=== PATIENT | male | born 1980 | race African-American/Black ===

== ENCOUNTER 2017-01-09 09:16 | Emergency (ER) | payer BC ==
[2017-01-09] MEDS ORDERED: Ketorolac 60 MG/2 ML SDV IM ONE (09:40)
--- NOTE | 2017-01-09 09:45 | EDM.PDOC ---
ED HPI GENERAL MEDICAL PROBLEM - General Chief Complaint: Back Pain or Injury Stated Complaint: BACK PAIN Time Seen by Provider: 01/09/17 09:34 - History of Present Illness INITIAL COMMENTS - FREE TEXT/NARRATIVE: HISTORY AND PHYSICAL: History of present illness: The patient is a 36-year-old male who presents with complaints of pain to his right posterior neck/upper back area that has been ongoing on-and-off episodically since 2012. Patient states he had an injury back then and since then he'll have episodic pain and he has seen the chiropractor for this and uses Naprosyn. 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 He is right -hand dominant. The pain does not radiate to his arm and there is no numbness tingling or neurovascular changes in his extremity. He says that the pain he is experiencing today is typical to his prior episodes but he says that normally the Naprosyn will make it go away and this time it only reduce the pain but did not alleviate the pain. The patient denies any anterior chest pain shortness of breath fever chills abdominal complaints or midline back pain. The patient also mentions a small fatty cystlike area on his soft tissue right forearm he wanted me to take a look at but he is not complaining of pain in that region. Review of systems: As per history of present illness and below otherwise all systems reviewed and negative. Past medical history: As per history of present illness and as reviewed below otherwise noncontributory. Surgical history: As per history of present illness and as reviewed below otherwise noncontributory. Social history: No reported history of drug or alcohol abuse. Family history: As per history of present illness and as reviewed below otherwise noncontributory. Physical exam: Gen.: Well-developed well-nourished man who moves easily in the ED and vital signs have been reviewed by me. HEENT: Atraumatic, normocephalic, negative for conjunctival pallor or scleral icterus, mucous membranes moist, throat clear, neck supple, nontender, trachea midline. There are no midline step-offs tenderness or defects of the cervical spine but there is reproducible tenderness at the trapezius and right paraspinal musculature on the right. Lungs: Clear to auscultation, breath sounds equal bilaterally, chest nontender. Heart: S1S2, regular rate and rhythm no overt murmurs Abdomen: Soft, nondistended, nontender. NABS. Negative for costovertebral tenderness. Pelvis: Stable nontender. Genitourinary: Deferred. Rectal: Deferred. Extremities: Atraumatic, full range of motion without any defects or deficits. The legs are negative for cords or calf pain. Neurovascular unremarkable. At his right forearm proximally on the dorsal aspect there is a walnut size soft tissue fatty like area which is mobile nontender and nonfluctuant and not erythematous. Neuro: Awake, alert, oriented. Cranial nerves II through XII unremarkable. Cerebellum unremarkable. Motor and sensory unremarkable throughout. Exam nonfocal. Back: There are no midline step-offs in his defects of the thoracic or lumbar spine and there is no posterior rib tenderness or scapular tenderness. There is paraspinal cervical musculature spasm and tenderness as described above Diagnostics: X-ray of cervical spine and chest x-ray Therapeutics: Toradol Testing results were discussed with the patient as well as his blood pressure. He says he feels very nervous being here but I told him that he needs to follow- up in the clinic both for his blood pressure as well as today's complaints. I will also give him information for Dr. Christie if he would like that cystlike area on his arm removed. Impression: Right neck/upper back pain acute on chronic Definitive disposition and diagnosis as appropriate pending reevaluation and review of above. right upper back Pain Score (Numeric/FACES): 3 - Related Data Allergies Allergy/AdvReac Type Severity Reaction Status Date / Time No Known Allergies Allergy Verified 01/09/17 09:29 Home Meds: Home Meds . [No Known Home Meds] 01/09/17 [History] Past Medical History - Past Health History Medical/Surgical History: Denies Medical/Surgical History Musculoskeletal History: Reports: Back Pain, Chronic Social & Family History - Family History Family Medical History: Noncontributory - Tobacco Use Smoking Status *Q: Never Smoker - Recreational Drug Use Recreational Drug Use: No ED ROS GENERAL - Review of Systems Review Of Systems: ROS reveals no pertinent complaints other than HPI. ED EXAM, GENERAL - Physical Exam Exam: See Below (See dictation) Course - Vital Signs Last Recorded V/S: Last Vital Signs Temp 36.3 C 10/05/17 09:16 Pulse 82 01/09/17 09:16 Resp 18 01/09/17 09:16 BP 154/106 H 01/09/17 09:16 Pulse Ox 97 01/09/17 09:16 - Orders/Labs/Meds Meds: Medications Discontinued Medications Generic Name Dose Route Start Last Admin Trade Name Mary Ellen PRN Reason Stop Dose Admin Ketorolac Tromethamine 60 mg 01/09/17 09:40 01/09/17 10:04 Toradol IM 01/09/17 09:41 60 mg ONETIME ONE Administration Departure - Departure Time of Disposition: 10:30 Disposition: Home, Self-Care 01 Condition: Good Clinical Impression: Neck pain on right side, Musculoskeletal pain, chronic - Discharge Information Referrals: PCP,None [Primary Care Provider] - Forms: ED Department Discharge Additional Instructions: The following information is given to patients seen in the emergency department who are being discharged to home. This information is to outline your options for follow-up care. We provide all patients seen in our emergency department with a follow-up referral. The need for follow-up, as well as the timing and circumstances, are variable depending upon the specifics of your emergency department visit. If you don't have a primary care physician on staff, we will provide you with a referral. We always advise you to contact your personal physician following an emergency department visit to inform them of the circumstance of the visit and for follow-up with them and/or the need for any referrals to a consulting specialist. The emergency department will also refer you to a specialist when appropriate. This referral assures that you have the opportunity for followup care with a specialist. All of these measure are taken in an effort to provide you with optimal care, which includes your followup. Under all circumstances we always encourage you to contact your private physician who remains a resource for coordinating your care. When calling for followup care, please make the office aware that this follow-up is from your recent emergency room visit. If for any reason you are refused follow-up, please contact the [facility] emergency department at and ask to speak to the emergency department charge nurse. [facility] Primary care- [place] [address] [facility] Specialty clinic-Plastic Surgery and Hand Surgery Professional Building [address] [place] [id number] Please take the Naprosyn that you have for pain and if that does not work try the muscle relaxer as prescribed. Please only take the muscle relaxers when you 're at home. Please call and follow-up in our clinic for reevaluation of this care plan for your pain as well as for reevaluation of your blood pressure. Please reduce or eliminate sodium in the foods that you eat to help with your blood pressure. Please also call and follow-up with our plastic surgeon or evaluation of removal of the fatty mass on your arm. Return to ER as needed and as discussed
--- NOTE | 2017-01-09 10:17 | CR ---
EXAMINATION: Two-view chest (PA and Lateral views). HISTORY: Shortness of breath. FINDINGS: The trachea is midline. The cardiomediastinal silhouette is within normal limits. No pulmonary infilt rates, effusions or pneumothorax. Osseous structures appear unremarkable. IMPRESSION: No acute cardiopulmonary process.
--- NOTE | 2017-01-09 10:18 | CR ---
EXAMINATION: Cervical spine HISTORY: Pain COMPARISON: 09/30/2013 TECHNIQUE: AP and lateral views FINDINGS: There is mild reversal of the mid cervical lordosis. The vertebral body heights and disc sp aces appear maintained. There is no fracture or dislocation. Bone mineralization is normal. The preve rtebral soft tissues are unremarkable. Facet alignment is preserved. IMPRESSION: Grossly unremarkable cervical spine.
[2017-01-09 10:43] VITALS: BP 146/105
== END 2017-01-09 10:40 | disposition home or self-care (01) ==
LOC: MW.ED 09:16
DX: G89.29 Other chronic pain (principal); M54.2 Cervicalgia; R03.0 Elevated blood-pressure reading, without diagnosis of hypertension
CPT/HCPCS: 71020; 72040; 96372; 99283; J1885; 99282